=== PATIENT | female | born 1950 | race African-American/Black ===

== ENCOUNTER 2023-11-25 20:09 | Emergency (ER) | payer MEDICARE, OTHER, SELFPAY ==
[2023-11-25] VITALS (10 sets, daily range): BP systolic 118–167; BP diastolic 70–99; BMI 22.5
[2023-11-25 21:50] LABS: % Basophils 0.3 % (0-2); % Eosinophils 0.1 % (0-6); % Immature Granulocytes 0.4 % (0-0.5); % Lymphocytes 16.7 % (20.5-51.1); % Monocytes 4.3 % (1.7-9.3); % Neutrophils 78.2 % (42.2-75.2); Absolute Immature Granulocytes 0.1 10^3/uL (0-0.05); Absolute Monocytes 0.5 10^3/uL (0.1-0.6); Absolute Neutrophils 9.5 10^3/uL (1.4-6.5); Hematocrit 37.8 % (37.0-47.0); Hemoglobin 12.8 g/dL (12.0-16.0); Mean Corp Hgb Conc. 33.9 g/dL (33.0-37.0); Mean Corpuscular Hgb 28.6 pg (27.0-31.0); Mean Corpuscular Volume 84.6 fL (81.0-99.0); Mean Platelet Volume 9.9 fL (7.4-10.4); Nucleated Red Blood Cells % 0 %; Platelet Count 348 10^3/uL (130-400); Red Blood Cell Count 4.47 10^6/uL (4.20-5.40); Red Cell Dist. Width 15.5 % (11.5-14.5); White Blood Cell Count 12.1 10^3/uL (4.8-10.8)
--- NOTE | 2023-11-25 22:30 | ED.GENMED ---
History of Present Illness
<ABDIRAHMAN Klein Jr. Last Filed: 11/25/23 23:17>
General
Chief Complaint: Musculo-Skeletal Complaint
Source: patient and family
Exam Limitations: none
Time Seen by Provider: 11/25/23 20:25
Nursing documentation reviewed up to this point in time: agreed with
History of Present Illness
History of Present Illness:
73-year-old female with past medical history of hypertension hyperlipidemia GERD presenting to the emergency department after a trip down a step where she landed on her right shoulder immediately felt it displaced ongoing discomfort since denies
hitting her head or losing consciousness this occurred a few hours prior to arrival.
Review of Systems
<ABDIRAHMAN Klein Jr. Last Filed: 11/25/23 23:17>
Review of Systems
Allergies reviewed?: Yes
All Other Systems: ROS reviewed and negative except as documented in HPI and ROS
Phy Exam
<ABDIRAHMAN Klein Jr. Last Filed: 11/25/23 23:17>
Physical Exam
Physical Exam:
GENERAL: Alert , in no apparent distress
EYE: pupils equal and reactive
NECK: Supple, no significant adenopathy.
ENT: o/p clr, mmm.
CARDIAC: Regular rate and rhythm .
LUNGS: Clear breath sounds bilaterally, no acute respiratory distress, no wheezes/rales/rhonchi
ABDOMEN: Soft, without focal tenderness, no r/g, no cvat
NEUROLOGICAL: Alert and oriented, no focal neuro deficits
SKIN: Warm and dry, skin intact.
MUSCULOSKELETAL: Deformity to the right shoulder distally normal pulses no tenderness throughout the remainder of the arm well perfused.
PSYCH: Normal and appropriate interaction.
Course
<ABDIRAHMAN Klein Jr. Last Filed: 11/25/23 23:17>
Orders/Labs/Results
Orders:
Orders
11/25/23 20:19
Shoulder, Right, Trauma [CR Shoulder, Trauma - Right] Urgent
Comment:
Reason For Exam: fall, right shoulder pain
11/25/23 21:44
CBC/With Diff [Complete Blood Count/With Diff] Urgent
11/25/23 21:51
Propofol [Diprivan] 20 ml .ROUTE .STK-MED
11/25/23 22:04
Shoulder, Right 2 Views [CR Shoulder - Right Min 2 View] Urgent
Comment:
Reason For Exam: post reduction
Abnormal Lab Results
11/25/23
21:44
WBC 12.1 H 10^3/uL
(4.8-10.8)
RDW 15.5 H %
(11.5-14.5)
Abs Immat Gran (auto) 0.1 H 10^3/uL
(0-0.05)
Absolute Neuts (auto) 9.5 H 10^3/uL
(1.4-6.5)
Neutrophils % 78.2 H %
(42.2-75.2)
Lymphocytes % 16.7 L %
(20.5-51.1)
11/25/23 21:44
11/25/23 22:10
Vital Signs
Initial and Last Documented VS:
Initial Vital Signs
Temp Pulse Resp BP Pulse Ox
98.2 F 77 18 146/99 100
11/25/23 20:15 11/25/23 20:15 11/25/23 20:15 11/25/23 20:15 11/25/23 20:15
Last Documented Vital Signs
Temp Pulse Resp BP Pulse Ox
98.3 F 60 15 149/78 100
11/25/23 22:39 11/25/23 22:33 11/25/23 22:33 11/25/23 22:33 11/25/23 22:33
<Eric Silva MD - Last Filed: 11/25/23 22:34>
Orders/Labs/Results
Orders:
Orders
11/25/23 20:19
Shoulder, Right, Trauma [CR Shoulder, Trauma - Right] Urgent
Comment:
Reason For Exam: fall, right shoulder pain
11/25/23 21:44
CBC/With Diff [Complete Blood Count/With Diff] Urgent
11/25/23 21:51
Propofol [Diprivan] 20 ml .ROUTE .STK-MED
11/25/23 22:04
Shoulder, Right 2 Views [CR Shoulder - Right Min 2 View] Urgent
Comment:
Reason For Exam: post reduction
Abnormal Lab Results
11/25/23
21:44
WBC 12.1 H 10^3/uL
(4.8-10.8)
RDW 15.5 H %
(11.5-14.5)
Abs Immat Gran (auto) 0.1 H 10^3/uL
(0-0.05)
Absolute Neuts (auto) 9.5 H 10^3/uL
(1.4-6.5)
Neutrophils % 78.2 H %
(42.2-75.2)
Lymphocytes % 16.7 L %
(20.5-51.1)
11/25/23 21:44
11/25/23 22:10
Vital Signs
Initial and Last Documented VS:
Initial Vital Signs
Temp Pulse Resp BP Pulse Ox
98.2 F 77 18 146/99 100
11/25/23 20:15 11/25/23 20:15 11/25/23 20:15 11/25/23 20:15 11/25/23 20:15
Last Documented Vital Signs
Temp Pulse Resp BP Pulse Ox
98.3 F 60 15 149/78 100
11/25/23 22:39 11/25/23 22:33 11/25/23 22:33 11/25/23 22:33 11/25/23 22:33
Procedures
<Harry Maier Jr., PA-C - Last Filed: 11/25/23 23:17>
Moderate Sedation
Moderate Sedation Start Time(when first medication is given): 22:00
<Eric Silva MD - Last Filed: 11/25/23 22:34>
Moderate Sedation
ASA Risk Score: Class II
Chart and allergies reviewed: Yes
Consent for anesthesia obtained: Yes
Time out completed (validating right patient & procedure): Yes
History of difficult intubation: No
Airway free of obstruction: Yes
Patient has a gag reflex: Yes
Patient is able to open mouth: Yes
Patient has no dentures: Yes
Patient has no loose teeth: Yes
Medication administered by Provider during Moderate Sedation: IV Propofol (mg)
Total dose administered: 80
Time drug administered: 22:00
Moderate Sedation Procedure End Time: 22:15
Joint/Fracture Reduction
Right Shoulder:
Indication for procedure:: shoulder dislocation
Procedure completed by: Eric Silva MD; Harry Maier PA-C
Consent form signed: Yes
Anesthesia/sedation: Moderate sedation
Injury was: closed
Further treatement: no treatment needed
Post reduction exam: stable
Capillary Refill: normal
Normal distal neurovascular exam?: Yes
Peripheral Pulses: radial (right): 2+
<Harry Maier Jr., PA-C - Last Filed: 11/25/23 23:17>
MDM/Problems Addressed
MDM/Problems Addressed:
73-year-old female presenting to the emergency department today with concerns of right shoulder discomfort after she tripped on a step and hit her right shoulder directly causing deformity. Adamantly denies hitting her head or losing consciousness
no discomfort to her head no nausea vomiting numbness or weakness only discomfort to her shoulder patient does take Plavix but adamantly denies any significant trauma to her head. Right shoulder found to be dislocated. Patient was given propofol
this was reduced case was additionally discussed with orthopedics and will follow-up closely as an outpatient. Return precautions given.
<Harry Maier Jr., PA-C - Last Filed: 11/25/23 23:17>
*Critical Care Note
Total Time (30-74mins, 75-104mins- exclusive of procedures): Not Applicable
ED Attending Note
<Harry Maier Jr., PA-C - Last Filed: 11/25/23 23:17>
-
Portions of this chart may have been created with voice recognition software.� Occasional wrong word or��sound alike� substitutions may have occurred due to the inherent limitations of voice recognition software.
<Eric Silva MD - Last Filed: 11/25/23 22:34>
ED Attending Note
Patient seen and examined by attending physician: Yes
ED Attending Note:
I have seen and evaluated the patient with a [id number] encounter. I have spoken to the advance practicer provider and involved in the medical history, the physical exam, medical decision making.
Evaluation and management service: agree unless noted differently below.
Results interpretation: agree unless noted differently below.
Focused HPI: 73-year-old female with history as documented presents after minor trip and fall with injury to her right shoulder. Denies any head trauma or any other injuries.
Physical exam: Awake and alert no distress. Head atraumatic. Vitals normal. Obvious dislocation of the right shoulder. Good strong right radial pulse. Motor and sensory function intact distal right upper extremity.
Medical Decision Makin-year-old female presents after monitor for fall and right shoulder injury. X-ray shows dislocation. Initially attempted reduction using joint block unsuccessfully; patient was consented for moderate sedation and closed
reduction of the joint. Joint was reduced successfully. Postreduction x-ray shows pseudosubluxation but appropriate reduction. Discussed with Ortho to review x-ray who agreed�placed in a sling will discharge with Ortho referral.
Discharge Plan
Departure
Patient Disposition: Home (Routine Discharge)
Date of Disposition: 11/25/23
Time of Disposition: 23:14
Patient with high blood pressure during this ER visit?: No
Condition: Good
Covid-19: Not Applicable
Discharge Problem:
Dislocated shoulder
Instructions: Shoulder Dislocation (DC)
Prescriptions:
New
oxycodone-acetaminophen [Endocet] 5-325 mg tablet
1 tab PO Q6H PRN (Reason: Pain) Qty: 5 0RF
No Action
nifedipine 30 mg Tablet Extended Release
30 mg PO DAILY
pantoprazole 20 mg Tablet,Delayed Release (Dr/Ec)
20 mg PO DAILY PRN (Reason: stomach)
atorvastatin 40 mg Tablet
40 mg PO QPM Qty: 30 0RF
nicotine 14 mg/24 hr Patch 24 Hour
14 mg transdermal DAILY Qty: 28 0RF
clopidogrel 75 mg Tablet
75 mg PO DAILY Qty: 20 0RF
aspirin 81 mg Tablet,Chewable
81 mg PO DAILY Qty: 90 0RF
lisinopril 5 mg Tablet
5 mg PO DAILY Qty: 30 0RF
Referrals:
[facility] [Other]
Jackson Morgan MD [Active] - Follow up in 5-7 days
Activity Restrictions/Additional Instructions:
You came to the emergency department today after a shoulder dislocation. This was reduced here. Please leave the sling in place and follow-up closely with orthopedics. Return to the emergency department for any worsening, new or concerning
symptoms.
Interventions
Interventions:
*Risk Screen - Suicide Last Done: 11/25/23 20:17
*General Assessment Last Done: 11/25/23 20:17
*Neglect/Abuse Screening Last Done: 07/20/24 20:17
ED- Fall Risk Assessment Last Done: 11/25/23 21:13
ED-Musculoskeletal Assessment Last Done: 11/25/23 21:12
Discharge Date and Time
Print Language: ZAMBIAN
[2023-11-25] MEDS: PERCOCET 5/325 1 TABLET PO (23:21)
== END 2023-11-25 23:31 | disposition home or self-care (01) ==
LOC: EMR 20:09
PROVIDERS: Physician Assistant; EMERGENCY PHYSICIAN Emergency Medicine
DX: S43.004A Unspecified dislocation of right shoulder joint, initial encounter (principal); M25.511 Pain in right shoulder; W10.9XXA Fall (on) (from) unspecified stairs and steps, initial encounter
CPT/HCPCS: 99285; 23650; 99152; 73030; 85025

== ENCOUNTER → 2023-12-12 10:10 | Outpatient (REF) | payer MEDICARE, OTHER, SELFPAY | LOC: RCS 10:10 | PROVIDERS: ATTENDING PHYSICIAN Internal Medicine Cardiovascular Disease | DX: Z95.0 Presence of cardiac pacemaker (principal) | CPT/HCPCS: 93306 ==